=== PATIENT | male | born 1995 | race Caucasian/White ===

== ENCOUNTER 2020-10-04 09:32 | Emergency (ER) | payer MEDICAID ==
[~2020-10-04] VITALS: Ht 172.7 cm; Wt 108.4 kg
--- NOTE | 2020-10-04 09:32 | NUR ---
Patient wheelchair assisted to bed 8.
[2020-10-04] MEDS ORDERED: PANTOPRAZOLE 40 MG INJ VIAL IVP ONE (09:35)
[2020-10-04] MEDS ORDERED: ONDANSETRON 4 MG/2 ML VIAL IVP ONE (09:35)
[2020-10-04] MEDS ORDERED: NACL 0.9% 1,000 ML IV ONE (09:35)
[2020-10-04] MEDS ORDERED: LORazepam 2 MG/ML VIAL IVP ONE (09:35)
[2020-10-04 09:38] VITALS: BP 150/94
--- NOTE | 2020-10-04 10:00 | NUR ---
25 Y/O MALE C/O VOMITING BLOOD & ABDOMINAL PAIN X 2DAYS. DENIES FEVER, DIARRHEA/CONSTIPATION. PT STATES 10/10 EPIGASTRIC PAIN. WITH LOSS OF APPETITE. REPORTS POSSIBLE DRUG/ALCOHOL WITHDRAWAL. MOTHER AT BEDSIDE. MEDHX: SCHIZOPHRENIA, HIGH CHOLESTEROL NKA
--- NOTE | 2020-10-04 10:07 | NUR ---
PATIENT TAKEN TO X RAY VIA W/C, ACCOMPANIED BY Trellise.
--- NOTE | 2020-10-04 10:20 | NUR ---
PT RETURNED TO BED 8
[2020-10-04 10:41] LABS: MONOCYTES # (AUTO) 0.9 K/uL (0.8-1.0)
[2020-10-04 10:44] LABS: BASOPHILS # (AUTO) 0.1 K/uL (0.00-0.22); EOSINOPHILS # (AUTO) 0.1 K/uL (0-0.4); EOSINOPHILS % (AUTO) 0.8 % (0.0-4.0); HEMATOCRIT 51.9 % (36-52); LYMPHOCYTES % (AUTO) 26.8 % (20.5-51.1); MEAN CORPUSCULAR HEMOGLOBIN 33 pg (27-31); MEAN CORPUSCULAR HGB CONC 35 g/dL (33-37); MEAN CORPUSCULAR VOLUME 93.8 fL (80-94); MONOCYTES % (AUTO) 7.8 % (1.7-9.3); NEUTROPHILS # (AUTO) 7.2 K/uL (1.8-7.7); NEUTROPHILS % (AUTO) 63.6 % (42.2-75.2); PLATELET COUNT (AUTO) 276 K/uL (140-450); RED BLOOD CELL COUNT(AUTO) 5.53 MIL/uL (4.20-6.10); RED CELL DISTRIBUTION WIDTH 12.7 % (11.6-13.7); WHITE BLOOD COUNT (AUTO) 11.4 K/uL (4.8-10.8)
[2020-10-04 10:49] LABS: ALBUMIN 5.6 g/dL (3.4-5.0); ANION GAP 18.7 (8-16); CARBON DIOXIDE 24.5 mmol/L (21-32); CREATININE 1.3 mg/dL (0.6-1.3); POTASSIUM 3.2 mmol/L (3.5-5.1); TOTAL BILIRUBIN 1.6 mg/dL (0.0-1.0)
[2020-10-04] MEDS ORDERED: DICYCLOMINE HCL LIQUID 20 MG, ALUMINUM HYD/MAG/SIMETHICONE 30 ML, LIDOCAINE VISCOUS 2% ... PO ONE ×3 (11:05)
[2020-10-04] MEDS ORDERED: DICYCLOMINE HCL LIQUID 10 MG/5 ML UDC ONE (11:23)
[2020-10-04] MEDS ORDERED: ALUMINUM HYD/MAG/SIMETHICONE 30 ML UDC ONE (11:23)
[2020-10-04 12:06] LABS: APPEARANCE,URINE CLOUDY (CLEAR); BILIRUBIN,URINE 3+ (NEGATIVE); BLOOD, URINE TRACE-I (NEGATIVE); LEUKOCYTE ESTERASE ,URINE NEGATIVE (NEGATIVE); NITRITE, URINE POSITIVE (NEGATIVE); UGLUCOSE NEGATIVE (NEGATIVE)
[2020-10-04 12:07] LABS: COLOR,URINE YELLOW (YELLOW)
[2020-10-04] MEDS ORDERED: FAMO-90 PO (12:26)
[2020-10-04] MEDS ORDERED: ONDA-24 SL (12:26)
[2020-10-04 12:35] LABS: RBC,URINE 0-5 /HPF (0-5); WBC,URINE 0-5 /HPF (0-5)
[2020-10-04 12:36] LABS: URINE AMORPHOUS URATE 2+ /HPF (None Seen)
[2020-10-04 12:40] VITALS: BP 150/94
--- NOTE | 2020-10-04 12:40 | NUR ---
Patient discharged with v/s stable. Written and verbal after care instructions given and explained. Patient alert, oriented and verbalized understanding of instructions. Ambulatory with steady gait. All questions addressed prior to discharge. ID band removed. Patient advised to follow up with PMD. Rx of PEPCID AND ZOFRAN given. Patient educated on indication of medication including possible reaction and side effects. Opportunity to ask questions provided and answered.
== END 2020-10-04 12:40 | disposition home or self-care (01) ==
LOC: MED 09:32
DX: K29.70 Gastritis, unspecified, without bleeding (principal); R11.15 Cyclical vomiting syndrome unrelated to migraine; F12.10 Cannabis abuse, uncomplicated; F20.9 Schizophrenia, unspecified
CPT/HCPCS: 36415; 74022; 80053; 81001; 83690; 85025; 87086; 96361; 96374; 96375; 99284; C9113; J2060; J2405; J7030